=== PATIENT | female | born 1995 | race Caucasian/White ===

== ENCOUNTER 2021-04-12 08:58 | Emergency (ER) | payer OTHER ==
[~2021-04-12] VITALS: Ht 167.6 cm; Wt 52.2 kg
--- NOTE | 2021-04-12 09:29 | NUR ---
BACK FROM RADIOLOGY POST CT.
--- NOTE | 2021-04-12 09:56 | NUR ---
[employer] HERE TO SEE PATIENT.
--- NOTE | 2021-04-12 10:00 | NUR ---
[employer] HERE FOR PATIENT. WAS TOLD TO WAIT FOR HER BELONGING TO BE BROUGHT BACK TO HER.
--- NOTE | 2021-04-12 10:45 | NUR ---
PT ABSCONDED ; REFUSED TO RETURN, SECURITY CALLED.
== END 2021-04-12 11:22 | disposition left against medical advice (07) ==
LOC: ER 08:58
DX: S02.2XXA Fracture of nasal bones, initial encounter for closed fracture (principal); Y04.0XXA Assault by unarmed brawl or fight, initial encounter; Y92.009 Unspecified place in unspecified non-institutional (private) residence as the place of occurrence of the external cause
CPT/HCPCS: 70450; 70486; 71045; A4663